=== PATIENT | female | born 2000 | race Caucasian/White ===

== ENCOUNTER 2021-11-06 20:35 | Emergency (ER) | payer OTHER | END 2021-11-06 22:11 | disposition home or self-care (01) | LOC: ER1 20:35 | DX: M25.561 Pain in right knee (principal); X50.9XXA Other and unspecified overexertion or strenuous movements or postures, initial encounter; Y92.009 Unspecified place in unspecified non-institutional (private) residence as the place of occurrence of the external cause | CPT/HCPCS: 73564; 99283 ==